=== PATIENT | female | born 1965 | race Caucasian/White ===

== ENCOUNTER → 2018-01-07 15:30 | Outpatient (CLI) | payer BC, SELFPAY ==
--- NOTE | 2018-01-07 | MM_ITS ---
MM Dig screening mamm BI w/CAD CAD Screening COMPARISON: Digital mammograms 12/13/2016 and 01/17/2016 INDICATION: There is a history of breast cancer patient maternal great aunt. TECHNIQUE: Standard CC and MLO images were obtained. R2 CAD reviewed. FINDINGS: Prominent diffuse heterogenic fibroglandular densities are seen in both breasts somewhat lessening the sensitivity of mammography.. There are scattered benign-appearing calcination is in each breast. There is no new or suspicious lesion in either breast and no suspicious microcalcifications. IMPRESSION: Dense parenchymal pattern with no suspicious lesion seen BI-RADS Category: 2 Benign Finding(s) RECOMMENDED FOLLOW-UP: 1YR - 1 YEAR FOLLOW-UP (A letter has been sent to the patient regarding results of the study.)
== END ==
PROVIDERS: Family Provider Family Medicine; PCP Family Medicine; Visit Provider Family Medicine
DX: Z12.31 Encounter for screening mammogram for malignant neoplasm of breast (principal)
CPT/HCPCS: 77067

== ENCOUNTER → 2018-04-20 07:19 | Outpatient (CLI) | payer BC, SELFPAY ==
[2018-04-20 09:53] LABS: Alanine Aminotransferase 15 U/L (12-78); Albumin Level 3.1 gm/dL (3.4-5.0); Albumin/Globulin Ratio 1.2 (1.1-1.8); Alkaline Phosphatase 50 U/L (46-116); Anion Gap 8.4 mEq/L (5-15); Aspartate Amino Transferase 7 U/L (15-37); Bilirubin,Total 0.2 mg/dL (0.2-1.0); Blood Urea Nitrogen 19 mg/dL (7-18); Carbon Dioxide 30 mmol/L (21.0-32.0); Chloride 111 mmol/L (98-107); Chol/HDL Ratio 2.6 (1-3.5); Cholesterol 179 mg/dL (140-200); Creatinine,Serum 0.59 mg/dL (0.55-1.02); Estimated Glomerular Filt Rate 108 ml/min (>60); GFR (African American) 131 ML/MIN (>60); Globulin 2.6 gm/dl (1.3-3.2); Glucose 91 mg/dL (74-106); HDL Cholesterol 68 mg/dL (29-89); LDL Cholesterol 103 mg/dL (0-130); Potassium 4.4 mmoL/L (3.5-5.1); Sodium 145 mmol/L (136-145); Total Protein,Serum 5.7 gm/dL (6.4-8.2); Triglycerides 42 mg/dL (30-200); VLDL Cholesterol 8 mg/dL (0-40)
== END ==
PROVIDERS: PCP Family Medicine; Visit Provider Family Medicine
DX: Z00.00 Encounter for general adult medical examination without abnormal findings (principal); Z83.3 Family history of diabetes mellitus
CPT/HCPCS: 36415; 80053; 80061

== ENCOUNTER → 2018-08-13 11:32 | Outpatient (CLI) | payer BC, SELFPAY ==
--- NOTE | 2018-08-13 11:37 | XR_ITS ---
XR knee LT 3V HISTORY: ITS.REASON: LEFT KNEE PAIN ORDERING PHYSICIAN: Darrel Dodson MD PATIENT AGE: 53 years COMPARISON: 03/07/2012 FINDINGS: There are mild osteoarthritic changes of the medial and lateral compartment and moderate osteoarthritic changes of the patellofemoral joint with osteophyte formation and decrease in the joint space. Osteophytes present at the tibial spine well. No fracture or dislocation. No lytic or blastic change. IMPRESSION: Mild to moderate osteoarthritis which is shown some progression compared to the previous exam
== END ==
PROVIDERS: PCP Family Medicine; Visit Provider Family Medicine
DX: M25.562 Pain in left knee (principal)
CPT/HCPCS: 73562

== ENCOUNTER → 2019-01-28 15:43 | Outpatient (CLI) | payer BC, SELFPAY ==
--- NOTE | 2019-01-28 15:46 | MM_ITS ---
MM Dig screening mamm BI w/CAD CAD Screening COMPARISON: Digital mammograms with CAD 01/07/2018 and 12/13/2016 INDICATION: There is a history of breast cancer in patient's 2 maternal great aunts TECHNIQUE: Standard CC and MLO images were obtained. R2 CAD reviewed. FINDINGS: There is a diffusely dense and heterogenic parenchymal pattern lessening the sensitivity of mammography. The findings are bilateral and symmetrical. There are few scattered benign-appearing microcalcifications in each breast. There is no suspicious lesion and there are no suspicious microcalcifications. IMPRESSION: Stable exam with diffusely dense parenchymal pattern BI-RADS Category: 2 Benign Finding(s) RECOMMENDED FOLLOW-UP: 1YR - 1 YEAR FOLLOW-UP (A letter has been sent to the patient regarding results of the study.)
== END ==
PROVIDERS: PCP Family Medicine; Visit Provider Family Medicine
DX: Z12.31 Encounter for screening mammogram for malignant neoplasm of breast (principal)
CPT/HCPCS: 77067

== ENCOUNTER → 2020-01-27 15:25 | Outpatient (CLI) | payer BC, SELFPAY ==
--- NOTE | 2020-01-27 15:28 | MM_ITS ---
PROCEDURE: MM DIG SCREENING MAMM BI W/CAD Digital Breast Tomosynthesis Included CLINICAL INDICATION: SCREENING There is a history of breast cancer patient's maternal great aunt. COMPARISON: [facility] DIG MAMM-SCREEN [facility] W/CAD from 12/13/2016 [facility] MM Dig screening mamm BI w/CAD from 01/07/2018 DIG MAMM-SCREEN [facility] from 01/28/2019 TECHNIQUE: Standard CC and MLO images and 3D Tomosynthesis was obtained. R2 CAD reviewed. FINDINGS: There is a diffusely dense and heterogenic parenchymal pattern bilaterally. Cayetano images are most helpful in this type of breast parenchyma. There are few scattered benign-appearing microcalcifications in each breast. There is no suspicious lesion and no suspicious microcalcifications. IMPRESSION: Diffusely dense and heterogenic parenchymal pattern with no suspicious lesions seen BI-RAD Category: 2 Benign Finding(s) FOLLOW-UP: 1YR 1 Year Follow-up (A letter has been sent to the patient regarding results of the study.) Dictated by: Dr. Rufus Howard MD 01/30/2020 10:[address] Rufus Howard MD in [place] 01/30/2020 10:24
== END ==
PROVIDERS: PCP Family Medicine; Visit Provider Family Medicine
DX: Z12.31 Encounter for screening mammogram for malignant neoplasm of breast (principal)
CPT/HCPCS: 77063; 77067

== ENCOUNTER → 2020-07-31 10:25 | Outpatient (CLI) | payer BC, SELFPAY ==
[2020-07-31 11:01] LABS: Eosinophils # 0.2 K/mm3 (0.0-0.4); Monocytes # 0.3 K/mm3 (0.1-1.0)
[2020-07-31 11:04] LABS: Basophils % 0.7 % (0.1-2.0); Eosinophils % 6.6 % (0.1-12.0); Hematocrit 38.5 % (37.0-47.0); Hemoglobin 11.3 g/dL (12.2-16.2); Lymphocytes # 0.9 K/mm3 (0.7-4.5); Lymphocytes % 26.3 % (10-50); Mean Corpuscular HGB Conc 29.5 g/dL (31.8-35.4); Mean Corpuscular Volume 71.2 fl (81-99); Mean Platelet Volume 7.3 fl (7.4-10.4); Neutrophils % 57.4 % (37.0-80.0); Platelet Count 129 K/mm3 (142-424); Red Blood Count 5.41 M/mm3 (4.20-5.40); Red Cell Distribution Width 18.3 % (11.5-17.5); White Blood Count 3.5 K/mm3 (4.8-10.8)
[2020-07-31 11:54] LABS: Alanine Aminotransferase 14 U/L (12-78); Albumin Level 4.2 g/dl (3.5-5.0); Albumin/Globulin Ratio 1.6 (1.1-1.8); Alkaline Phosphatase 61 U/L (38-126); Anion Gap 10.2 mEq/L (5-15); Aspartate Amino Transferase 25 U/L (14-36); Bilirubin,Total 0.3 mg/dl (0.2-1.3); Blood Urea Nitrogen 14 mg/dl (7-17); Calcium 9.2 mg/dl (8.4-10.2); Carbon Dioxide 32 mmol/L (22.0-30.0); Chloride 105 mmol/L (98-107); Estimated Glomerular Filt Rate 75 ml/min (>60); GFR (African American) 91 ML/MIN (>60); Globulin 2.6 g/dL (1.3-3.2); Glucose 99 mg/dl (74-100); Potassium 4.2 mmoL/L (3.5-5.1); Sodium 143 mmol/L (136-145); Total Protein,Serum 6.8 g/dl (6.3-8.2)
[2020-07-31 12:12] LABS: Coronavirus 19 IgG Antibody Negative (Negative); Coronavirus 19 IgM Antibody Negative (Negative)
[2020-07-31 12:15] LABS: HCG,Quantitative < 2 mIU/ml (0-5.42)
== END ==
PROVIDERS: Visit Provider Obstetrics & Gynecology
DX: Z01.818 Encounter for other preprocedural examination (principal); Z03.818 Encounter for observation for suspected exposure to other biological agents ruled out; D06.9 Carcinoma in situ of cervix, unspecified; B97.7 Papillomavirus as the cause of diseases classified elsewhere
CPT/HCPCS: 36415; 80053; 84702; 85025; 86328

== ENCOUNTER 2020-08-02 06:22 | Day surgery (SDC) | payer BC, SELFPAY ==
[2020-08-02 06:25] VITALS: BMI 24.7
[2020-08-02 06:54] VITALS: BP 127/68; PULSE 62; RESP 20; TEMP 36.6; O2SAT 100; BMI 23.8
[2020-08-02 07:05] LABS: HCG Qualitative, Serum Negative (Negative)
--- NOTE | 2020-08-02 07:39 | HMH.ANESCL ---
[facility] Anesthesia Checklist - Patient Identification Patient Identification: Arm Band - Structural Data Admitted From: Home Planned Operative Procedure/s: LEEP Consent for Planned Operative Procedure(s) Verified: Yes Verified Documents: Surgical Consent, History and Physical - NPO Status Verified Time NPO: 00:00 - Additional verifications Anesthesia Reactions: No Hx Blood Transfusions: No Blood Transfusion Reaction: No - Airway Assessment C-Spine Mobility Assessed: Yes (mp2) TMJ Mobility Assessed: Yes Dentition: Poor Dentition - Neurological Assessment Level of Consciousness: Awake, Alert - Anesthesia Plan Anesthesia Risk discussed: Yes Anesthesia Plan: Verified ASA Class: II Anesthesia Type: MAC [facility] History I have reviewed the patient's past medical history: Yes Medical History: Reports:: Deep Vein Thrombosis Denies:: Anxiety, Cancer, Depression, Diabetes Mellitus Type 1, Diabetes Mellitus Type 2, Internal Pacemaker, Lung Disease, MRSA, Seizures *Have you ever received a pneumonia vaccine?: No *Have you received a flu vaccine this season?: No Other Medical History: Denies: Blood Transfusion Reaction Anesthesia experience/problems:: nac Laterality Cases: Bilateral: Tonsillectomy Other Surgeries: Yes: Colonoscopy. No: Pacemaker Amputation: No Fractures: No - *Social History Last grade of school completed: High school graduate Smoking Status: Never smoker Alcohol Intake: never Substance Use Type: denies use *Occupational Status:: employed Housing: house Household Members: significant other *Travel in the last 8 weeks: None - Psychiatric History Pschychiatric History:: Denies:: Anxiety, Depression Family Hx:: Diabetes, Heart Attack
[2020-08-02 08:51] LABS: Benzodiazepines Screen,Urine Negative ng/ml (<200)
[2020-08-02 08:52] LABS: Amphetamine/Metha Screen,Urine Negative ng/ml (<1000)
[2020-08-02 08:53] LABS: Barbiturates Screen,Urine Negative ng/ml (<200); Cannabinoid Screen,Urine Negative ng/ml (<50)
[2020-08-02 08:54] LABS: Cocaine Screen,Urine Negative ng/ml (<300)
[2020-08-02 08:55] LABS: Methadone Screen,Urine Negative ng/ml (<300); Opiate Screen,Urine Negative ng/ml (<300)
[2020-08-02 08:56] LABS: Phencyclidine Screen,Urine Negative ng/ml (<25)
[2020-08-02 10:05] VITALS: BP 93/53; PULSE 60; RESP 16; TEMP 36.1; O2SAT 94
--- NOTE | 2020-08-02 10:11 | P.OP_ITS ---
Date of procedure: 08/02/20 Pre-op Diagnosis:: ALICIA 3, severe dysplasia of cervix Post-op Diagnosis:: same plus cervical stenosis Procedure performed:: Loop Electro-surgical Excisional Procedure Surgeon:: Geno Jewell MD Electric Motor And Generator Assembler(s):: none TRUCK UNLOADER:: Rupert Conroyty Anesthesia: MAC Estimated blood loss (mL): 10 Operative findings:: stenosis of cervix Operative note:: The patient was taken to the operating room and general anesthesia administered without difficulty. She was prepped & draped in lithotomy position. Coated instruments were used to prevent electrical conductivity through retractors; a coated speculum was placed in the vagina and the cervix positioned midline. The procedure was begun using a C-LETZ loop, however the ectocervix was so stenotic that the loop could not be used as intended. Pediatric dilators were used to assist with access to the endocervix, at the cone was then excised using a traditional loop instead of C-LETZ. The specimen was excised in several pieces. Sharp endocervical curettage was performed and sent as a seperate specimen, although access to the endocervix was still very limited, with minimal dilation achieved earlier in the procedure. The remaining ectocervix surface was cauterized using a bovie ball as treatment for any residual dysplasia. The endocervical margins were cauterized using the bovie ball for hemostasis, with care taken to avoid cautery to the endocervical canal. The endocervical curette was placed in the canal to ensure patency. Monsel's solution was placed over the surgical site for additional hemostasis. Once hemostasis was achieved, all instruments were removed from the vagina. All counts were correct. The patient was taken out of lithotomy position, awakened from anesthesia and taken to the PACU in stable condition. EBL: 10cc Condition: stable Disposition: PACU Specimens:: 1. Cervical cone (ectocervix) 2. Endocervical curettings Complications:: none
[2020-08-02 10:20] VITALS: BP 93/58; PULSE 55; RESP 16; TEMP 36.1; O2SAT 94
[2020-08-02 10:35] VITALS: BP 106/65; PULSE 57; RESP 16; TEMP 36.1; O2SAT 100
[2020-08-02 10:50] VITALS: BP 125/76; PULSE 52; RESP 18; TEMP 36.1; O2SAT 97
[2020-08-02 11:11] VITALS: BP 132/84; PULSE 51; RESP 18; TEMP 36.1; O2SAT 97
== END 2020-08-02 11:12 | disposition home or self-care (01) ==
PROVIDERS: PCP Family Medicine; Visit Provider Obstetrics & Gynecology
PROC: (CPT 57522; principal; 2020-08-02 08:30)
DX: D06.9 Carcinoma in situ of cervix, unspecified (principal); N88.2 Stricture and stenosis of cervix uteri; Z86.718 Personal history of other venous thrombosis and embolism; Z83.3 Family history of diabetes mellitus; Z82.49 Family history of ischemic heart disease and other diseases of the circulatory system; Z83.438 Family history of other disorder of lipoprotein metabolism and other lipidemia; Z84.1 Family history of disorders of kidney and ureter; Z80.9 Family history of malignant neoplasm, unspecified; Z79.82 Long term (current) use of aspirin
CPT/HCPCS: 57522; 80305; 84703; 96374

== ENCOUNTER → 2021-01-21 15:32 | Outpatient (CLI) | payer BC, SELFPAY ==
--- NOTE | 2021-01-21 15:37 | MM_ITS ---
PROCEDURE: MM DIG SCREENING MAMM BI W/CAD Digital Breast Tomosynthesis Included CLINICAL INDICATION: SCREENING COMPARISON: MG [facility] MM Dig screening mamm BI w/CAD from 01/07/2018 MG DIG MAMM-SCREEN [facility] from 01/28/2019 MG MM DIG SCREENING MAMM BI W/CAD from 01/27/2020 TECHNIQUE: Standard CC and MLO images and 3D Tomosynthesis was obtained. R2 CAD reviewed. FINDINGS: Breast parenchyma is heterogeneously dense which may lower the sensitivity of mammography. Scattered benign-appearing calcifications again noted bilaterally. No new dominant mass. No indirect evidence of malignancy or suspicious type microcalcifications. IMPRESSION: Benign bilateral digital screening mammograms. BI-RAD Category: 2 Benign Finding FOLLOW-UP: 1 YR 1 Year Follow-up (A letter has been sent to the patient regarding results of the study.) Dictated by: Corona Del Cid MD 01/21/2021 18:09 Corona Del Cid MD in [place] 01/21/2021 18:09
== END ==
PROVIDERS: PCP Family Medicine; Visit Provider Family Medicine
DX: Z12.31 Encounter for screening mammogram for malignant neoplasm of breast (principal)
CPT/HCPCS: 77063; 77067

== ENCOUNTER → 2022-02-03 08:15 | Outpatient (CLI) | payer BC, SELFPAY ==
--- NOTE | 2022-02-03 08:23 | MM_ITS ---
PROCEDURE INFORMATION: Exam: MG Bilateral Screening 3D Mammography Exam date and time: 02/03/2022 8:21 AM Age: 56 years old Clinical indication: Screening examination . Family history of breast carcinoma. TECHNIQUE: Imaging protocol: Bilateral Screening tomosynthesis and 2D mammography including computer-aided detection (CAD) when performed. COMPARISON: 1. MG MM DIG SCREENING MAMM BI W/CAD 01/21/2021 3:43 PM 2. MG MM DIG SCREENING MAMM BI W/CAD 01/27/2020 3:33 PM 3. MG DIG MAMM-SCREEN [facility] 01/28/2019 3:58 PM FINDINGS: MAMMOGRAPHY: Breast composition: The breasts are heterogeneously dense, which may obscure small masses. Mass: No suspicious masses. Architectural distortion: No suspicious distortion. Calcifications: No suspicious calcifications. Asymmetric density: None. Skin thickening: None. Axillary adenopathy: None. IMPRESSION: No mammographic evidence of malignancy. Annual screening is recommended unless otherwise clinically indicated. ASSESSMENT: BI-RADS Category 1: Negative
== END ==
PROVIDERS: PCP Family Medicine; Visit Provider Family Medicine
DX: Z12.31 Encounter for screening mammogram for malignant neoplasm of breast (principal)
CPT/HCPCS: 77063; 77067

== ENCOUNTER → 2022-04-15 07:50 | Outpatient (CLI) | payer BC, SELFPAY ==
[2022-04-15 09:26] LABS: Alanine Aminotransferase 14 U/L (12-78); Albumin Level 4.1 g/dl (3.5-5.0); Albumin/Globulin Ratio 1.9 (1.1-1.8); Alkaline Phosphatase 76 U/L (38-126); Anion Gap 7.6 mEq/L (5-15); Aspartate Amino Transferase 23 U/L (14-36); Bilirubin,Total 0.6 mg/dl (0.2-1.3); Blood Urea Nitrogen 21 mg/dl (7-17); Calcium 8.9 mg/dl (8.4-10.2); Carbon Dioxide 28 mmol/L (22.0-30.0); Chloride 109 mmol/L (98-107); Chol/HDL Ratio 3.4 (1-3.5); Cholesterol 192 mg/dl (140-200); Estimated Glomerular Filt Rate 104 ml/min (>60); GFR (African American) 126 ML/MIN (>60); Globulin 2.2 g/dL (1.3-3.2); Glucose 81 mg/dl (74-100); HDL Cholesterol 56 mg/dl (40-60); Potassium 4.6 mmoL/L (3.5-5.1); Sodium 140 mmol/L (136-145); Total Protein,Serum 6.3 g/dl (6.3-8.2); Triglycerides 64 mg/dl (30-150); VLDL Cholesterol 13 mg/dL (0-40)
== END ==
PROVIDERS: PCP Family Medicine; Visit Provider Family Medicine
DX: Z13.220 Encounter for screening for lipoid disorders (principal); Z13.1 Encounter for screening for diabetes mellitus
CPT/HCPCS: 36415; 80053; 80061

== ENCOUNTER 2023-01-10 15:24 | Emergency (ER) | payer BC, SELFPAY ==
[2023-01-10 15:26] VITALS: BP 160/89; PULSE 70; RESP 18; TEMP 36.6; O2SAT 100; BMI 23.9
[2023-01-10 15:48] LABS: Microscopic, Urine URINE MICROSCOPIC (MICROSCOPIC)
--- NOTE | 2023-01-10 15:50 | PC.NURSE ---
DR KELLOGG AT BEDSIDE
--- NOTE | 2023-01-10 15:53 | HMH.EDUROGF ---
Discharge Plan Disposition Patient Disposition: Home, Self-Care Condition: Good Prescriptions Prescriptions: New sulfamethoxazole-trimethoprim [Bactrim DS] 800-160 mg tablet 1 tab PO BID 7 Days Qty: 14 0RF No Action aspirin 81 MG tablet,chewable 81 mg PO DAILY Referrals Follow up/Referrals: Darrel Dodson MD [Primary Care Provider] - See instructions Activity Restrictions/Add. Instructions Additional Instructions/Restrictions: Take all medications as prescribed. Return to the emergency department if you feel worse in any way. I expect your condition to improve in the next 3 to 4 days once you have started your antibiotics. Follow-up with your primary care doctor in about 3 to 4 days if you do not improve. Clinical Impressions Clinical Impression: Cystitis Instructions Patient Instructions: DI for Urinary Tract Infection (UTI) Discharge ED Provider: Jorge Carr Female Urogenital HPI General Chief complaint: Urogenital-Female Stated complaint: female area pain, painful to urinate Time Seen by Provider: 01/10/23 15:53 Mode of Arrival: Ambulatory Limitations: No Limitations Description of Symptoms (Recalled from ER Triage Doc. by RN): pt c/o vaginal pain x 2 weeks. reports painful burning with urination History of Present Illness HPI Narrative: The patient presents to the emergency department complaining of a 2-week history of dysuria. She states that she has also had some pruritus. She has drank a lot of cranberry juice and water to no avail. She does not know whether she has a rash. She denies any nausea vomiting diarrhea or fever. Complaint: dysuria Related Data Home Medications Medication Instructions Recorded Confirmed aspirin 81 mg chewable tablet 81 mg PO DAILY [facility] 05/20/18 08/17/20 Previous Rx's Medication Instructions Recorded sulfamethoxazole 800 1 tab PO BID 7 days #14 tabs 01/10/23 mg-trimethoprim 160 mg tablet (Bactrim DS) Allergies Allergy/AdvReac Type Severity Reaction Status Date / Time No Known Allergies Allergy Verified 12/14/20 15:32 [facility] Disclaimer: The information contained in this section may have been updated after the patient was seen, as this information can be updated by other users. Social History Smoking Status: Never smoker second hand exposure: Yes alcohol intake: never substance use type: denies use current occupational status: employed Travel in the last 8 weeks: None household members: significant other housing: house current occupation: Ident current occupational exposures/hazards: Yes caffeine: Yes ROS Obtained: Yes All systems reviewed & no additional complaints except as documented Physical Exam General General appearance: alert Head Head exam: atraumatic Eye Eye exam: Present normal appearance ENT ENT exam: Present normal exam Neck Neck exam: Present normal inspection and full ROM; Absent tenderness or meningismus Chest Chest inspection: Present normal inspection and symmetric chest wall rise; Absent tenderness Respiratory Respiratory exam: Present normal lung sounds bilaterally; Absent respiratory distress or accessory muscle use Cardiovascular Cardiovascular exam: Present regular rate, normal rhythm and normal heart sounds Abdominal Exam Abdominal exam: Present soft, tenderness (There is some mild suprapubic tenderness.) and normal bowel sounds; Absent distention, guarding, rebound, heel tap sign, Reynoso's sign, Rovsing's sign, tenderness at McBurney's Point or mass Extremities Exam Extremities exam: Present normal inspection and full ROM Back Exam Back exam: Present normal inspection; Absent CVA tenderness (R) or CVA tenderness (L) Neurological Exam Neurological exam: Present alert and oriented X3 Psychiatric Psychiatric exam: Present normal affect and normal mood Skin Skin exam: Present warm, dry, intact and normal color Medical Decision Making Malcolm Azul
[2023-01-10 16:09] LABS: Appearance,Urine CLOUDY (Clear); Bilirubin,Urine Negative (Negative); Blood, Urine 1+ (Negative); Color,Urine YELLOW (Yellow); Glucose,Urine (UA) Negative (Negative); Ketones,Urine TRACE (Negative); Leukocyte Esterase,Urine 2+ (Negative); Nitrate,Urine POSITIVE (Negative); PH,Urine 5.5 (5.0-8.5); Protein,Urine TRACE (Negative); Specific Gravity, Urine 1.025 (1.005-1.030); Urobilinogen,Urine 0.2 EU/dl (0.2)
[2023-01-10 16:33] LABS: Bacteria,Urine 4+ /lpf; Squamous Epithelial Cell,Urine Occasional #/hpf (0-5); WBC,Urine TNTC #/hpf (0-3)
[2023-01-10 16:43] VITALS: BP 128/70; PULSE 60; RESP 18; TEMP 36.6; O2SAT 99
== END 2023-01-10 16:44 | disposition home or self-care (01) ==
PROVIDERS: Emergency Provider Emergency Medicine; PCP Family Medicine
DX: N30.00 Acute cystitis without hematuria (principal)
CPT/HCPCS: 81001; 87086; 87088; 87186; 99283; 99284

== ENCOUNTER → 2023-02-05 14:48 | Outpatient (CLI) | payer BC, SELFPAY ==
--- NOTE | 2023-02-05 14:51 | MM_ITS ---
PROCEDURE INFORMATION: Exam: MG Bilateral Screening 3D Mammography Exam date and time: 02/05/2023 2:58 PM Age: 57 years old Clinical indication: Screening examination TECHNIQUE: Imaging protocol: Bilateral Screening tomosynthesis and 2D mammography including computer-aided detection (CAD) when performed. COMPARISON: 1. MG MM DIG SCREENING MAMM BI W/CAD 02/03/2022 8:21 AM 2. MG MM DIG SCREENING MAMM BI W/CAD 01/21/2021 3:43 PM FINDINGS: MAMMOGRAPHY: Breast composition: There are scattered areas of fibroglandular density. Mass: None. Architectural distortion: None. Calcifications: No suspicious calcifications. Asymmetric density: None. Skin thickening: None. Axillary adenopathy: None. IMPRESSION: No mammographic evidence of malignancy. Annual screening is recommended unless otherwise clinically indicated. ASSESSMENT: BI-RADS Category 1: Negative
== END ==
PROVIDERS: PCP Family Medicine; Visit Provider Family Medicine
DX: Z12.31 Encounter for screening mammogram for malignant neoplasm of breast (principal)
CPT/HCPCS: 77063; 77067

== ENCOUNTER → 2023-05-12 08:41 | Outpatient (CLI) | payer BC, SELFPAY ==
[2023-05-12 09:50] LABS: Alanine Aminotransferase 16 U/L (12-78); Albumin Level 3.9 g/dl (3.5-5.0); Albumin/Globulin Ratio 1.6 (1.1-1.8); Alkaline Phosphatase 55 U/L (38-126); Aspartate Amino Transferase 20 U/L (14-36); Bilirubin,Total 0.4 mg/dl (0.2-1.3); Blood Urea Nitrogen 19 mg/dl (7-17); Carbon Dioxide 30 mmol/L (22.0-30.0); Chloride 110 mmol/L (98-107); Chol/HDL Ratio 3.4 (1-3.5); Cholesterol 184 mg/dl (140-200); Estimated Glomerular Filt Rate 103 ml/min (>60); GFR (African American) 125 ML/MIN (>60); Globulin 2.4 g/dL (1.3-3.2); Glucose 90 mg/dl (74-100); HDL Cholesterol 54 mg/dl (40-60); Sodium 144 mmol/L (136-145); Total Protein,Serum 6.3 g/dl (6.3-8.2); Triglycerides 61 mg/dl (30-150); VLDL Cholesterol 12 mg/dL (0-40)
[2023-05-12 10:01] LABS: Direct LDL Cholesterol 98.46 mg/dL (100-129)
== END ==
PROVIDERS: PCP Family Medicine; Visit Provider Family Medicine
DX: Z00.00 Encounter for general adult medical examination without abnormal findings (principal); Z13.220 Encounter for screening for lipoid disorders
CPT/HCPCS: 36415; 80053; 80061

== ENCOUNTER 2023-12-05 16:38 | Outpatient (CLI) | payer BC, SELFPAY ==
--- NOTE | 2023-12-05 16:46 | MM_ITS ---
PROCEDURE INFORMATION: Exam: MG Bilateral Screening 3D Mammography Exam date and time: 12/05/2023 4:31 PM Age: 58 years old Clinical indication: Screening examination TECHNIQUE: Imaging protocol: Bilateral Screening tomosynthesis and 2D mammography including computer-aided detection (CAD) when performed. COMPARISON: 1. MG MM DIG SCREENING MAMM BI W/CAD 02/05/2023 2:58 PM 2. MG MM DIG SCREENING MAMM BI W/CAD 02/03/2022 8:21 AM FINDINGS: MAMMOGRAPHY: Breast composition: There are scattered areas of fibroglandular density. Mass: None. Architectural distortion: None. Calcifications: No suspicious calcifications. Asymmetric density: None. Skin thickening: None. Axillary adenopathy: None. IMPRESSION: No mammographic evidence of malignancy. Annual screening is recommended unless otherwise clinically indicated. ASSESSMENT: BI-RADS Category 1: Negative
== END 2023-12-05 23:59 | disposition home or self-care (01) ==
LOC: RAD 16:39
PROVIDERS: PCP Family Medicine; Visit Provider Family Medicine
DX: Z12.31 Encounter for screening mammogram for malignant neoplasm of breast (principal)
CPT/HCPCS: 77063; 77067

== ENCOUNTER 2024-12-15 15:48 | Outpatient (CLI) | payer BC, SELFPAY ==
--- NOTE | 2024-12-15 15:56 | MM_ITS ---
PROCEDURE INFORMATION: Exam: MG Bilateral Screening 3D Mammography Exam date and time: 12/15/2024 3:59 PM Age: 59 years old Clinical indication: Screening examination TECHNIQUE: Imaging protocol: Bilateral Screening tomosynthesis and 2D mammography including computer-aided detection (CAD) when performed. COMPARISON: 1. MG MM DIG SCREENING MAMM BI W/CAD 12/05/2023 4:31 PM 2. MG MM DIG SCREENING MAMM BI W/CAD 02/05/2023 2:58 PM FINDINGS: MAMMOGRAPHY: Breast composition: There are scattered areas of fibroglandular density. Mass: None. Architectural distortion: None. Calcifications: No suspicious calcifications. Asymmetric density: Questionable 0.5 cm focal asymmetry in the left lower inner quadrant at the posterior depth. Skin thickening: None. Axillary adenopathy: None. IMPRESSION: Patient to be recalled for spot compression views of the left breast in the CC and MLO projections, a full 90 degree lateral view, and left breast ultrasound for further evaluation of a left breast focal asymmetry. ASSESSMENT: BI-RADS Category 0: Incomplete- Need Additional Imaging Evaluation.
== END 2024-12-15 23:59 | disposition home or self-care (01) ==
LOC: RAD 15:48
PROVIDERS: PCP Family Medicine; Visit Provider Family Medicine
DX: Z12.31 Encounter for screening mammogram for malignant neoplasm of breast (principal); R92.8 Other abnormal and inconclusive findings on diagnostic imaging of breast
CPT/HCPCS: 77063; 77067

== ENCOUNTER 2025-05-13 14:21 | Outpatient (CLI) | payer BC, SELFPAY ==
--- NOTE | 2025-05-13 14:26 | US_ITS ---
PROCEDURE INFORMATION: Exam: US Left Breast Limited MG Left Diagnostic Breast Tomosynthesis Exam date and time: 05/13/2025 2:39 PM Age: 60 years old Clinical indication: Patient recalled on the basis of a screening mammogram for further evaluation; Left breast; asymmetry TECHNIQUE: Imaging protocol: Limited ultrasound of left breast with image documentation, including axilla when performed. Exam focused on the search and evaluation for mass. Left Diagnostic tomosynthesis and 2D mammography including computer-aided detection (CAD) when performed. Unilateral or bilateral exam. COMPARISON: Mammogram dated 12/15/2024 FINDINGS: MAMMOGRAPHY: Breast composition: There are scattered areas of fibroglandular density. Breast mammogram findings: Digital diagnostic spot compression views of the left breast and 90 degree lateral view of the left breast demonstrate normal overlapping fibroglandular structures without persistent mass or asymmetry identified. ULTRASOUND: Breast ultrasound findings: Sonographic images of the left lower quadrant, retroareolar region and axilla do not demonstrate any solid or cystic masses. No architectural distortion or acoustical shadowing. No axillary adenopathy IMPRESSION: No mammographic or sonographic evidence of malignancy. Annual bilateral mammographic screening is recommended unless otherwise clinically indicated. ASSESSMENT: BI-RADS Category 1: Negative.
== END 2025-05-13 23:59 | disposition home or self-care (01) ==
LOC: RAD 14:22
PROVIDERS: PCP Family Medicine; Visit Provider Family Medicine
DX: R92.322 Mammographic fibroglandular density, left breast (principal)
CPT/HCPCS: 76642; 77061; 77065; G0279